=== PATIENT | female | born 1995 ===

== ENCOUNTER 2017-04-04 20:56 | Emergency (ER) | payer OTHER ==
[2017-04-04 21:11] VITALS: BP 137/68
--- NOTE | 2017-04-04 21:21 | UC ---
Skin Complaint HPI - HPI Summary HPI Summary: wound left lower leg x 2 days mother is concern about infection pt. picks at the wound + redness no fever, no chills - History of Current Complaint Chief Complaint: UCSkin Time Seen by Provider: 04/04/17 21:09 Stated Complaint: LEFT LEG SKIN COMPLAINT Hx Obtained From: Patient Hx Last Menstrual Period: 04/04/17 Onset/Duration: Gradual Onset, Lasting Days - 2, Still Present Timing: Constant Onset Severity: Mild Current Severity: Moderate Location: Other - left lower leg Character: Redness Aggravating: Touch Alleviating: Nothing Associated Signs & Symptoms: Negative: Fever, Chills - Allergy/Home Medications Allergies/Adverse Reactions: Allergies Allergy/AdvReac Type Severity Reaction Status Date / Time Amoxicillin Allergy Severe Rash Verified 04/04/17 21:02 Home Medications: Home Medications Control Med 1 tab DAILY 04/04/17 [History Confirmed 04/04/17] Levothyroxine TAB* [Synthroid 75 MCG TAB*] 1 tab DAILY 04/04/17 [History Confirmed 04/04/17] Multiple Vitamins W/ Minerals [Multivitamin Adults] 1 tab PO DAILY 04/04/17 [ History Confirmed 04/04/17] risperiDONE TAB* [Risperdal*] 1 tab BID 04/04/17 [History Confirmed 04/04/17] Review of Systems Constitutional: Negative Eyes: Negative ENT: Negative Respiratory: Negative All Other Systems Reviewed And Are Negative: Yes PMH/Surg Hx/FS Hx/Imm Hx Psychological History: Other - autism Other Psychological History: autism - Surgical History Surgical History: None - Family History Known Family History: Negative: Cardiac Disease, Blood Disorder - Social History Alcohol Use: None Substance Use Type: None Smoking Status (MU): Never Smoked Tobacco - Immunization History Most Recent Influenza Vaccination: 2015 Physical Exam Triage Information Reviewed: Yes Appearance: Well-Appearing, No Pain Distress, Obese Vital Signs: Initial Vital Signs Temp 97.5 F 04/04/17 21:04 Pulse 93 04/04/17 21:04 Resp 18 04/04/17 21:04 BP 137/68 04/04/17 21:04 Pulse Ox 100 04/04/17 21:04 Vital Signs Reviewed: Yes Eyes: Positive: Conjunctiva Clear ENT: Positive: Normal ENT inspection, Hearing grossly normal, Pharynx normal Neck: Positive: Supple, Nontender, No Lymphadenopathy Respiratory: Positive: Chest non-tender, Lungs clear, Normal breath sounds Cardiovascular: Positive: RRR, No Murmur, Pulses Normal Skin: Positive: Other - right henderson : + ulceration , + granulation tissue, mild erythem aroung the wound , no discharge, no tenderness, mild swelling Course/Dx - Diagnoses Provider Diagnoses: wound left lower leg Discharge - Discharge Plan Condition: Stable Disposition: HOME Prescriptions: Mupirocin 2% CREAM* [Bactroban 2% CREAM*] 1 applic TOPICAL TID #1 tube Patient Education Materials: Acute Wound Care (ED) Referrals: Srinivasa Cooper MD [Primary Care Provider] - If Needed
== END 2017-04-04 21:24 | disposition home or self-care (01) ==
LOC: UCCORT 20:56
DX: T14.8 Other injury of unspecified body region (principal); L08.9 Local infection of the skin and subcutaneous tissue, unspecified; X58.XXXA Exposure to other specified factors, initial encounter; F84.0 Autistic disorder
CPT/HCPCS: 99202; G0463